=== PATIENT | female | born 1960 | race Caucasian/White ===

== ENCOUNTER → 2022-03-02 | Outpatient (CLI) | payer BC, OTHER | LOC: M WHC 09:26 | PROVIDERS: ATTEND Advanced Practice Midwife | DX: Z12.31 Encounter for screening mammogram for malignant neoplasm of breast (principal) ==

== ENCOUNTER → 2022-03-02 | Outpatient (REF) | payer OTHER | LOC: M PLALAB 11:56 | PROVIDERS: ATTEND Advanced Practice Midwife | DX: Z12.4 Encounter for screening for malignant neoplasm of cervix (principal) | CPT/HCPCS: 87624; G0123 ==

== ENCOUNTER → 2023-03-08 | Outpatient (CLI) | payer BC, OTHER | LOC: M WHC 09:27 | PROVIDERS: ATTEND Advanced Practice Midwife | DX: Z12.31 Encounter for screening mammogram for malignant neoplasm of breast (principal); N63.21 Unspecified lump in the left breast, upper outer quadrant ==

== ENCOUNTER → 2023-03-23 | Outpatient (CLI) | payer BC, OTHER | LOC: M WHC 14:51 | PROVIDERS: ATTEND Advanced Practice Midwife | DX: Z12.31 Encounter for screening mammogram for malignant neoplasm of breast (principal) ==